=== PATIENT | male | born 1965 | race Caucasian/White ===

== ENCOUNTER 2017-02-10 11:08 | Emergency (ER) | payer OTHER ==
[~2017-02-10] VITALS: Ht 175.3 cm; Wt 77.1 kg
[~2017-02-10 11:08] MED LIST: KETOROLAC TROME10 MG PO; LEVAQUIN500 MG PO; NAPROXEN250 MG PO; ONDANSETRON ODT4 MG SL; OXYCODONE HCL5 MG PO; OXYCONTIN10 MG; PROMETHAZINE HC25 M1 PO; SOMA350 MG; XANAX0.25 MG
[2017-02-10] MEDS ORDERED: VITAMIN D1000 UNI1 PO (11:20)
[2017-02-10] MEDS ORDERED: LIPITOR40 MG PO (11:20)
== END 2017-02-10 12:25 | disposition home or self-care (01) ==
LOC: ED 11:08
DX: M54.5 Low back pain (principal); Z88.0 Allergy status to penicillin; Z88.5 Allergy status to narcotic agent; G47.00 Insomnia, unspecified; Z87.891 Personal history of nicotine dependence; Z90.49 Acquired absence of other specified parts of digestive tract; Z98.890 Other specified postprocedural states
CPT/HCPCS: 96372; 99282; J1885

== ENCOUNTER 2018-07-07 06:59 | Day surgery (SDC) | payer OTHER ==
[~2018-07-07] VITALS: Ht 175.3 cm; Wt 78.5 kg
[~2018-07-07 06:59] MED LIST changes: +ADVIL LIQUI-GE200 MG PO; +CRESTOR10 MG PO; +DICLOFENAC SODI75 MG PO; +LIPITOR40 MG PO; +RESTORIL30 MG PO; +VITAMIN D1000 UNI1 PO
--- NOTE | 2018-07-07 09:01 | NUR ---
07/07/18 0901 Radha Barakat 0855 PATIENT ARRIVES TO PACU AWAKE BUT DROWSY, DENIES PAIN, BUT DOES C/O "FEELING A LITTLE NAUSEA." RESP EVEN AND UNLABORED, NC OFF ON ARRIVAL TO PACU. ROOM AIR SATS >95%. DR TAY AWARE OF NAUSEA, NEW ORDERS WRITTEN.
--- NOTE | 2018-07-07 14:41 | NUR ---
PT ALERT, ORIENTED AND SUPPORTED BY HIS AFSANEH. PT REQUESTED PRAYER, AND ASKED IF I WOULD REMEMBER SURGERY HE IS SCHEDULED FOR NEXT WEEK. WILL FOLLOW NEEDED
--- NOTE | 2018-07-08 06:29 | OR ---
[facility] [address], [place] [address] Signed DATE OF OPERATION: 07/07/2018 SURGEON: Alexander Tay MD PREOPERATIVE DIAGNOSES: 1. Screening. 2. Pruritus ani. POSTOPERATIVE DIAGNOSIS: Mildly indurated prostate gland. PROCEDURE PERFORMED: Colonoscopy without biopsy. ESTIMATED BLOOD LOSS: None. 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 He is in need of a colonoscopy. He had a couple of colonoscopies in his 40s and they both came out fine. Currently, he has no lower GI complaints. There is no family history of colon cancer or polyps. However, he does describe some pruritus ani. He is actually a bit to treat that conservatively and we had gone over that in detail in the office along with our handout. I also gave him a handout on endoscopy and we have reviewed that in detail. He understands the nature of the test along with its risks including, but not limited to gas bloating, crampy abdominal pain, bleeding, perforation, requiring surgery, and missed diagnosis. He also understands the need for IV conscious sedation. 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 Consequently, Versed may not be sufficient, but we will not know until we try. He had expressed understanding and wished to proceed. PROCEDURE NOTE: Dewayne was taken into the endoscopy suite and placed in the left lateral decubitus position. He was given a total of 8 mg of Versed and 150 mcg of fentanyl to cover the case. He did wake up right as we finished the case and was talking to us in recovery room. He also received preoperative antibiotics because of his hip replacement. A digital rectal exam was performed and he does have a little bit of pale skin around the anus, but it is not bad, very small if any hemorrhoid tissue. The adult colonoscope was then introduced and advanced all the way around right up to the ileocecal valve. The only place we could not see was immediately behind the ileocecal valve. We gave some Electronically Signed By: ALEXANDER TAY MD 07/08/18 0629 PATIENT NAME: JAYNEDEWAYNE Gisel OPERATIVE REPORT DATE OF : 63 REPORT #: [id number] PHYSICIAN: ALEXANDER TAY MD PCP: KEATON FERRERA REPORT IS CONFIDENTIAL AND NOT TO BE RELEASED WITHOUT AUTHORIZATION [facility] [address], [place] [address] Signed additional sedation, abdominal compression, and so forth, and we just could not quite get around the edge of the ileocecal valve. Otherwise, his prep was quite good. The scope was then slowly withdrawn. He had no pathology throughout the entire colon or rectum. Upon retroflexion of scope, really very minimal in the way of internal hemorrhoid tissue. The gas was then suctioned out and the colonoscope removed. Dewayne tolerated the procedure quite well. RECOMMENDATIONS: I will see Dewayne back in my office in 10 years for a repeat colonoscopy. Alexander Tay MD ALB/MODL /[id number] cc: CARI [facility] Diogo Burrows PA Andrew L Bower, MD Copies: KEATON FERRERA ANDREW L MD ~ Electronically Signed By: ALEXANDER TAY MD 07/08/18 0629 PATIENT NAME: DEWAYNE GODOY OPERATIVE REPORT DATE OF : 63 REPORT #: [id number] PHYSICIAN: ALEXANDER TAY MD PCP: KEATON FERRERA REPORT IS CONFIDENTIAL AND NOT TO BE RELEASED WITHOUT AUTHORIZATION
== END 2018-07-07 09:30 | disposition home or self-care (01) ==
LOC: DS 06:59 → OPS 06:59 → DS 08:00 → OPS 08:15
PROVIDERS: Colon & Rectal Surgery
PROC: 0DJD8ZZ Inspection of Lower Intestinal Tract, Via Natural or Artificial Opening Endoscopic (ICD-10-PCS; principal; 2018-07-07 08:15)
DX: Z12.11 Encounter for screening for malignant neoplasm of colon (principal); N42.89 Other specified disorders of prostate; L29.0 Pruritus ani; E78.5 Hyperlipidemia, unspecified; G47.30 Sleep apnea, unspecified; Z88.0 Allergy status to penicillin; Z88.5 Allergy status to narcotic agent; Z88.1 Allergy status to other antibiotic agents; Z88.8 Allergy status to other drugs, medicaments and biological substances; Z79.899 Other long term (current) drug therapy
CPT/HCPCS: 99153; G0500; J0692; J2250; J2405; J3010; J7120

== ENCOUNTER 2020-05-17 05:50 | Day surgery (SDC) | payer OTHER ==
--- NOTE | 2020-05-15 14:34 | NUR ---
DOS:05/17/20 PATIENT HAS 5 STEPS INTO THE HOME HAS WALK IN SHOWER WITH SHOWER CHAIR HAS FWW WILL TAKE PATIENT TO APPOINTMENTS AND PHYSICAL THERAPY HAS HIGH TOLIET IN THE HOME
[~2020-05-17] VITALS: Ht 175.3 cm; Wt 72.3 kg
[~2020-05-17 05:50] MED LIST changes: +CRUTCH1 EACH; +IBU600 MG; +PROZAC10 MG PO; +QUALAQUIN324 MG PO; +TYLENOL325 M1 PO
[2020-05-17] MEDS ORDERED: ATIVAN1 MG PO (06:08)
--- NOTE | 2020-05-17 08:46 | NUR ---
OR STAFF GRACIOUSLY GAVE ME A MOMENT WITH PT. PT IS ALITTLE ANXIOUS, AFSANEH BY HIS SIDE. HAD PRAYER WITH PT. WILL FOLLOW NEEDED
--- NOTE | 2020-05-17 11:15 | NUR ---
1100: PT ARRIVES TO DS RM 6 FROM PACU DROWSY. PT EASILY AROUSES WITH VERBAL STIMULI, PT SPOUSE AT BEDSIDE ASSISTING. PT STATES PAIN 4/10 IN LEFT HIP AND TOLERABLE AT THIS TIME. CONT PULSE OX LEFT IN PLACE D\T REPORT OF DESATS. PT 96% ON RA. PT TOLERATES ICE CHIPS WITH NO PROBLEM. CALL LIGHT WITHIN REACH, LIGHTS DIMMED.
--- NOTE | 2020-05-17 11:57 | NUR ---
05/17/20 1157 Yasmeen Ma 7909 PT ARRIVED IN PACU AWAKE ON ROOM AIR. 1010 ANESTHESIA PLACED FEMORAL BLOCK WITH HELP FROM RN. 1016 PT C/O L HIP PAIN 7/10. DILAUDID 0.5MG GIVEN IVP.1017 TORADOL 30MG GIVEN IVP PER DR ORDERS. 1023 NO CHANGE IN PAIN LEVEL. DILAUDID 0.5MG GIVEN IVP. PT MOVING AROUND IN BED R/T HIP PAIN. 1033 C/O L HIP PAIN 710. FENTANYL 50MCGG GIVEN IVP. ENCOURAGED COUGH, DEEP BREATHING. 1040 PELVIS XRAY DONE. CRYO CUFF PLACED ON L HIP. 1045 PAIN DOWN TO 4/10. FENTANYL 50MCG GIVEN IVP. MOVING BILAT FEET. 1100 PAIN DOWN TO 3/10. TO DS. REPORT GIVEN TO RN. AT BEDSIDE.
--- NOTE | 2020-05-17 12:37 | NUR ---
[id number]: PHYSICAL THERAPY IN PT ROOM FOR EXERCISES. PT LEFT FEMORAL MUSCLE WEAK FROM BONNY NERVE BLOCK WHEN ASSISTED UP. PHYSICAL THERAPY STATES PT IS OKAY TO DO MODIFIED EXERCISES AND TAKES PT IN WC TO MED SURG FLOOR WITH SPOUSE. 1225: PT BACK FROM PHYSICAL THERAPY AND IN DS RM 6. PT TRANSFERS SELF WITH USE OF WALKER TO BED. PHYSICAL THERAPY STATES PT IS SAFE TO DC HOME WITH SPOUSE WHO IS A SMOKE ROOM OPERATOR. CRYO CUFF PLACED ON LEFT HIP, SCD'S IN PLACE AND PUMPING. PT STATES PAIN HAS INCREASED AND RATES 6/10. PRN PAIN MEDICATION PROVIDED, SPOUSE AT BEDSIDE.
--- NOTE | 2020-05-17 13:10 | NUR ---
PT RESTING IN BED WITH SPOUSE AT BEDSIDE WATCHING TV. PT STATES PAIN IS SAME, 6/10 WHEN ASKED AFTER ORAL PAIN MEDICATION. PT STATES BUTTOCKS AND LEFT THIGH ARE NUMB AND CAN'T TELL IF HE HAS TO VOID. PT UP TO SIDE OF BED WITH RN ASSIST AND SPOUSE USING WALKER TRYING TO VOID IN URINAL. PT UNABLE TO VOID, BACK TO BED WITH SCD'S IN PLACE, CALL LIGHT WITHIN REACH.
--- NOTE | 2020-05-17 14:15 | NUR ---
PT BACK IN DS RM FROM PACU. PT STILL LOOPY FROM MEDS. SAID HE HAS NO PAIN. PT RAMBLED ABOUT HIS MOTHER. AFSANEH AT BS. GAVE BLESSING AND ENCOURAGEMENT. WILL FOLLOW NEEDED
--- NOTE | 2020-05-17 15:08 | NUR ---
[id number]: PT REQUESTS BENADRYL FOR ITCHINIG FROM PAIN MEDICATION. THIS RN CALLS DR. MAURICIO WHO GIVES A VERBAL ORDER FOR PO BENADRYL, THIS RN INPUTS INTO [email or web address] FOR PHARMACY TO VERIFY AND FILL. [id number]: PT BLADDER SCANNED OF APPROX 825 MLS. PT EDUCATED ABOUT URINARY RETENTION AND NEED FOR STRAIGHT CATHETER PER MD ORDERS. PT STATES HE DOES NOT WANT CATHETER AND WOULD LIKE TO TRY ONCE MORE TO VOID IN URINAL. THIS RN AND SPOUSE ASSIST PT TO SIDE OF BED WITH USE OF WALKER, PT UNABLE TO VOID ON OWN. PT REQUESTS SOMETHING FOR ANXIETY ABOUT CATHETER INSERTION. THIS RN PHONES DR. MAURICIO AND RECEIVES VERBAL ORDER FOR IV VERSED WHICH IS INPUT INTO [email or web address] BY THIS RN TO VERIFY AND FILL. [id number]: UROJET USED ON PT PRIOR TO CATHETER INSERTION. CATHETER STERILY PLACED AND BLADDER EMPTIED OF APPROX 830 MLS ORANGE/RED COLORED URINE. PT EDUCATED ABOUT NEW VOIDING TRIAL AND WATER REFILLED AT THIS TIME. SPOUSE IN PT ROOM AT BEDSIDE. 1500: MEÑO GARCIA IN TO SEE PT ABOUT LEFT FEMORAL MUSCLE WEAKNESS. WILL CONTINUE TO MONITOR PT URINARY STATUS.
--- NOTE | 2020-05-17 17:13 | NUR ---
[id number]: PT STANDS AT SIDE OF BED WITH RN AND SPOUSE ASSIST WITH USE OF WALKER TRYING TO VOID IN URINAL. PT ABLE TO VOID APPROX 100 MLS ORANGE COLORED URINE. LEFT FEMORAL MUSCLE REMAINS WEAK WHEN STANDING. PT BACK TO BED WITH SPOUSE AT BEDSIDE. 1620: DR. MAURICIO NOTIFIED OF PT STATUS AND GIVES VERBAL ORDER TO DC PT HOME. PT SPOUSE PROVIDED URINAL AND CHUX PER REQUEST. PT SPOUSE ASSISTS PT DRESSED. DC INSTRUCTIONS PRESENTED TO PT AND SPOUSE. DR. MAURICIO WILL SEND ORDER FOR FLOMAX FOR PT TO CERAMICS MACHINE OPERATOR TOMORROW. 1655: PT DC VIA WC TO SPOUSE WAITING AT FRONT ENTRANCE OF HOSPITAL TO HOME.
--- NOTE | 2020-05-19 07:04 | OR ---
[facility] [address], [place] [address] Signed DATE OF OPERATION: 05/17/2020 SURGEON: Basim Dia MD PREOPERATIVE DIAGNOSIS: Avascular necrosis, left hip. POSTOPERATIVE DIAGNOSIS: Avascular necrosis, left hip. PROCEDURE PERFORMED: Left total hip replacement with Abdi. FOOT TENDER: Iris Torres PA-C. Iris was present and critical for all portions of procedure. ANESTHESIA: Spinal. BLOOD LOSS: 150 mL. IMPLANTS: Catalino Accolade II size 4 stem, 52 cup and a +0 head. BRIEF HISTORY: Yohan is a 54-year-old gentleman with bilateral avascular necrosis, who had undergone successful right total hip and wished to proceed with a left. Risks and benefits of operative treatment were discussed with him. He elected to proceed. DESCRIPTION OF PROCEDURE: Once consent was obtained, he was taken to the operating room. After adequate anesthesia, he was placed on the bone foam anterior hip positioner. All downside pressure points well padded. Both lower extremities were prepped and draped in a standard sterile fashion. The prep was taken up above the iliac crest. The left hip and iliac crest were draped out as was the right iliac crest for placement of the computer array. Once this was accomplished, the ASIS on the right side was palpated three fingerbreadths below the we placed three Schanz pins for the computer ray. This was done percutaneously. Attention was then turned to the left side. A Electronically Signed By: BASIM DIA MD 05/19/20 0704 PATIENT NAME: YOHAN GODOY OPERATIVE REPORT DATE OF : 63 REPORT #: [id number] PHYSICIAN: BASIM DIA MD PCP: GABY CURRIE REPORT IS CONFIDENTIAL AND NOT TO BE RELEASED WITHOUT AUTHORIZATION [facility] [address], [place] [address] Signed standard anterior lateral approach through Busch Lu interval was taken through the skin and subcutaneous tissue. The fascia was divided longitudinally just anterior to the gluteus medius and finger dissection was taken between the gluteus medius and tensor fascia hugo. All bleeders were cauterized as we encountered them. We were then able to get over to the femoral neck, put retractors around the femoral neck inferiorly and superiorly. We then elevated the rectus off the anterior capsule and the anterior acetabulum and placed retractors. The capsulotomy was then performed and it was found to be quite thickened, probably about 5-[address] through. The periacetabular soft tissue was removed. We then released the inferior capsule along the femur down to the lesser trochanter such they could be palpated. We then made our femoral neck cut one fingerbreadth above the lesser trochanter to the saddle area. Another neck cut was made about a cm proximal to this and the ring was removed. The femoral head was then removed. Periacetabular soft tissue and the pulvinar was then taken out. Prior to doing this, we did register leg with the computer. We then took fine anatomical points of the acetabulum and registered with the computer. The acetabulum was then reamed up to the 52 and the cup was impacted in 40 degrees of abduction and 20 degrees of anteversion. The cup was quite tight and was felt to be stable. The liner was then impacted in position. Attention was turned to the proximal femur. Release was performed off the superior and lateral capsule. The femur had good access. Care was taken to protect the gluteus medius throughout this as well as the greater trochanter. The proximal femur was opened using the cookie cutter followed by the curetting laterally. The rat-tail rasp was then used to find the canal. We then sequentially broached up to a zero. I did take zero to start due to the hardness of his bone. We were able to broach up to 4 which was found to be quite well fitting. We did bring the C-arm in and checked the position and size of the stem and it was found to be adequate. We then dislocated the hip, which was found to be within 3 mm of the opposite side per our plan. We then removed the trials, placed the final stem and impacted until it was well-seated. The posterior head was impacted and the hip was reduced and again found to be within our plan. The wound was copiously irrigated with antibiotic solution throughout. Periarticular soft tissues were injected with 100 mL ropivacaine Toradol mixture. On-Q pain pump was placed percutaneously into the intracapsular area of the hip and the fascia was closed using #1 Stratafix, 2-0 Stratafix, for the subcutaneous tissue and 3-0 Monocryl for the skin. Steri-Strips were applied. The wound was dressed with an Acticoat 7 dressing. He was taken to the recovery room in satisfactory condition. All sponge, needle, and instrument counts were correct. Basim Dia MD Electronically Signed By: BASIM DIA MD 05/19/20 0704 PATIENT NAME: YOHAN GODOY OPERATIVE REPORT DATE OF : 63 REPORT #: [id number] PHYSICIAN: BASIM DIA MD PCP: GABY CURRIE REPORT IS CONFIDENTIAL AND NOT TO BE RELEASED WITHOUT AUTHORIZATION [address] [place] [address] Signed /TERRENCE /[id number] Copies: ~ Electronically Signed By: BASIM DIA MD 05/19/20 0704 PATIENT NAME: YOHAN GODOY OPERATIVE REPORT DATE OF : 63 REPORT #: [id number] PHYSICIAN: BASIM DIA MD PCP: GABY CURRIE REPORT IS CONFIDENTIAL AND NOT TO BE RELEASED WITHOUT AUTHORIZATION
== END 2020-05-17 16:55 | disposition home or self-care (01) ==
LOC: DS 05:50
PROVIDERS: ATTEND Specialist
PROC: 8E0YXBZ Computer Assisted Procedure of Lower Extremity (ICD-10-PCS; 2020-05-17)
PROC: 0SRB0JA Replacement of Left Hip Joint with Synthetic Substitute, Uncemented, Open Approach (ICD-10-PCS; principal; 2020-05-17 06:45)
DX: M87.052 Idiopathic aseptic necrosis of left femur (principal); G89.18 Other acute postprocedural pain; E78.5 Hyperlipidemia, unspecified; G25.81 Restless legs syndrome; F41.9 Anxiety disorder, unspecified; Z79.1 Long term (current) use of non-steroidal anti-inflammatories (NSAID); Z88.1 Allergy status to other antibiotic agents; Z88.0 Allergy status to penicillin; Z88.8 Allergy status to other drugs, medicaments and biological substances; Z87.891 Personal history of nicotine dependence; Z96.641 Presence of right artificial hip joint
CPT/HCPCS: 01214; 64447; 72170; 76942; 97162; 97530; C1713; C1776; J0690; J1100; J1170; J1885; J2001; J2250; J2405; J2704; J2795; J3010; J7121

== ENCOUNTER 2020-11-17 05:40 | Day surgery (SDC) | payer OTHER ==
[~2020-11-17] VITALS: Ht 175.3 cm; Wt 72.8 kg
[~2020-11-17 05:40] MED LIST changes: +ATIVAN1 MG PO; +BUPRENORPHINE1 EAC1 TD
[2020-11-17] MEDS ORDERED: DICLOFENAC SODI75 MG PO (08:52)
[2020-11-17] MEDS ORDERED: HYDROCODON-ACE1 EA11 PO (08:52)
--- NOTE | 2020-11-17 08:52 | NUR ---
11/17/20 0852 Adam,Tessa 0903 PT ARRIVED TO PACU ON 6L VIA MASK, ORAL AIRWAY IN PLACE. VSS. RESP EVEN AND UNLABORED. PT NONAROUSABLE TO PAINFUL STIMULI.
[2020-11-17] MEDS ORDERED: SENNA LAX8.6 MG PO (08:53)
[2020-11-17] MEDS ORDERED: GABAPENTIN300 MG PO (08:53)
--- NOTE | 2020-11-17 09:40 | NUR ---
0930: PT RETURNS TO UNIT VIA STRETCHER. AWAKE AND ORIENTED ON ARRIVAL. VSS, RESP EVEN AND UNLABORED. DENIES PAIN AND NAUSEA. ICE WATER AND APPLE SAUCE PROVIDED REQUESTED. DRESSING C/D/I WITH SLING IN PLACE. POC DISCUSSED AND PT AGREEABLE. ATTENTIVE AT THE BEDSIDE. NO NEEDS VOICED, CALL LIGHT WITHIN REACH
--- NOTE | 2020-11-17 10:38 | NUR ---
1015: PT AWAKE AND ALERT WATCHING TV IN BED. UP TO BR WITH STANDBY ASSIST FROM . DENIES DIZZINESS AND SOB, STEADY GAIT. SUCCESSFUL POSTOP VOID, 100ML. DRESSES SELF INDEPENDENTLY FOR D/C. VSS, RESP EVEN AND UNLABORED. DENIES PAIN AND NAUSEA AT THIS TIME. SL D/C'D WITH CATH TIP INTACT AND PRESSURE APPLIED TO SITE, WNL. 1030: D/C INSTRUCTIONS PROVIDED AND DISCUSSED ORDERED. PT VOICES UNDERSTANDING AND DENIES QUESTIONS AND CONCERNS AT THIS TIME. WHEELED OFF OF UNIT IN WC. TRANSFERS INTO VEHICLE INDEPENDENTLY. NO PHYSICAL S/S OF DISTRESS AT THIS TIME
--- NOTE | 2020-11-20 07:09 | OR ---
[facility] [address] [place], [place] [address] Signed DATE OF OPERATION: 11/17/2020 SURGEON: Basim Dia MD PREOPERATIVE DIAGNOSIS: Dupuytren's disease, recurrent right hand. POSTOPERATIVE DIAGNOSIS: Dupuytren's disease, recurrent right hand. PROCEDURE PERFORMED: Partial fasciectomy, right hand middle, ring and small digits. RIM FIRE CHARGER OPERATOR: None. ANESTHESIA: General with block. TOURNIQUET TIME: 65 minutes. BRIEF HISTORY: Yohan is a 55-year-old gentleman who has Dupuytren's in his right hand. He had partial fasciectomy prior with mild recurrence of the disease and quite a bit of pain along the small finger, which was the most contracted at about 10-15 degrees. Risks and benefits of operative treatment including, but not limited to bleeding, infection, injury to nerves and vessels, and nonhealing were discussed with him and he elected to proceed. DESCRIPTION OF PROCEDURE: Once consent was obtained, he was taken to the operating room. After adequate anesthesia, he was placed on operating table, all downside pressure points were well padded. A well-padded proximal arm tourniquet was placed. The arm was prepped and draped in a standard sterile fashion. The arm was exsanguinated using an Esmarch bandage. Tourniquet inflated to 200 mmHg. A transverse incision was made in the distal palmar crease and carefully carried through the skin. Skin flaps were then developed along the cords proximally first and then distally with care taken to not puncture a bone hole through the skin. The dissection was carried out using sharp knife and allowed visualization of the cords which were three separate masses along those digits. Careful dissection was taken proximally and the individual cords were Electronically Signed By: BASIM DIA MD 11/20/20 0709 PATIENT NAME: YHOAN GODOY OPERATIVE REPORT DATE OF : 63 REPORT #: [id number] PHYSICIAN: BASIM DIA MD PCP: GABY CURRIE REPORT IS CONFIDENTIAL AND NOT TO BE RELEASED WITHOUT AUTHORIZATION [facility] [address] [place], [place] [address] Signed dissected free from the underlying tendon sheath. There was minimal neurovascular bundle involvement in the ring and middle fingers. The neurovascular bundle between the ring and small finger was extensively involved in the disease and under loupe magnification, it was carefully dissected free from the overlying Dupuytren's cords. This was carried proximally to the proximal extent of the cord. This was then folded back and carefully dissected distally. Again, under loupe magnification, care was taken to carefully separate the neurovascular bundle from the overlying disease tissue. All three cords were then dissected distally. Both the ring and middle cords were self-terminated at about the MP joint. The small finger cord did go a little bit further distally. It was again dissected free of the surrounding soft tissue and was released. The cords were then removed from the wound. Careful palpation was undertaken and several small nodules were removed. Once again, the neurovascular bundles were visualized and found to be intact. We then released the tourniquet and let the arm set for 10 minutes. There was minor bleeding, but no pulsatile bleeding. All five fingers were well perfused with nice pink capillary refill. We then reapplied the tourniquet, irrigated the wound copiously with normal saline and closed the wound with a running 3-0 Monocryl suture in a horizontal mattress fashion. Once this was accomplished, the wound was then dressed with Adaptic and a bulky Lu hand dressing with the fingers in extension. This was covered with plaster again with three lesser digits in extension. The patient was then awakened, taken to the recovery room in satisfactory condition. All sponge, needle, and instrument counts were correct. Basim Dia MD BA/MODL /[id number] Copies: ~ Electronically Signed By: BASIM DIA MD 11/20/20 0709 PATIENT NAME: YOHAN GODOY OPERATIVE REPORT DATE OF : 63 REPORT #: [id number] PHYSICIAN: BASIM DIA MD PCP: GABY CURRIE REPORT IS CONFIDENTIAL AND NOT TO BE RELEASED WITHOUT AUTHORIZATION
== END 2020-11-17 10:30 | disposition home or self-care (01) ==
LOC: DS 05:40
PROVIDERS: ATTEND Specialist
PROC: 0LN70ZZ Release Right Hand Tendon, Open Approach (ICD-10-PCS; 2020-11-17)
PROC: 0LN70ZZ Release Right Hand Tendon, Open Approach (ICD-10-PCS; 2020-11-17)
PROC: 0LN70ZZ Release Right Hand Tendon, Open Approach (ICD-10-PCS; 2020-11-17)
PROC: 0JNJ0ZZ Release Right Hand Subcutaneous Tissue and Fascia, Open Approach (ICD-10-PCS; principal; 2020-11-17 07:00)
DX: M72.0 Palmar fascial fibromatosis [Dupuytren] (principal); G89.18 Other acute postprocedural pain; I10 Essential (primary) hypertension; Z88.6 Allergy status to analgesic agent; Z88.1 Allergy status to other antibiotic agents; Z88.5 Allergy status to narcotic agent; Z88.0 Allergy status to penicillin
CPT/HCPCS: 01830; 64417; 76942; J0690; J1100; J1885; J2001; J2250; J2405; J2704; J2795; J7121

== ENCOUNTER 2021-10-18 07:17 | Emergency (ER) | payer OTHER ==
[~2021-10-18] VITALS: Ht 175.3 cm; Wt 74.8 kg
[~2021-10-18 07:17] MED LIST changes: +GABAPENTIN300 MG PO; +HYDROCODON-ACE1 EA11 PO; +SENNA LAX8.6 MG PO
--- OUTSIDE RECORDS SUMMARY | 2021-10-18 07:20 | XMS ---
PreManage Notification: DEWAYNE GODOY Security Rental Car Porter Events No recent Security Events currently on file [facility] There are no care providers on record at this time. Sheila has no Care Guidelines for this patient. [place] VISIT COUNT (12 MO.) 1 SANTOSH Nguyen TOTAL 1 NOTE: Visits indicate total known visits. ED/C VISIT TRACKING (12 MO.) 10/18/2021 07:19 SANTOSH Lyn [place] TYPE: Emergency COMPLAINT: - FLU SYMPTOMS INPATIENT VISIT TRACKING (12 MO.) No inpatient visits to display in this time frame [email or web address]
== END 2021-10-18 09:02 | disposition home or self-care (01) ==
LOC: ED 07:17
DX: U07.1 COVID-19 (principal); G47.00 Insomnia, unspecified; Z88.0 Allergy status to penicillin; Z88.1 Allergy status to other antibiotic agents; Z88.5 Allergy status to narcotic agent; Z79.899 Other long term (current) drug therapy
CPT/HCPCS: 99283

== ENCOUNTER 2021-11-25 13:18 | Emergency (ER) | payer OTHER ==
[~2021-11-25] VITALS: Ht 175.3 cm; Wt 74.8 kg
--- OUTSIDE RECORDS SUMMARY | 2021-11-25 13:20 | XMS ---
PreManage Notification: DEWAYNE GODOY Security Drywall Taper Events No recent Security Events currently on file [facility] There are no care providers on record at this time. Sheila has no Care Guidelines for this patient. [place] VISIT COUNT (12 MO.) 2 SANTOSH Nguyen TOTAL 2 NOTE: Visits indicate total known visits. ED/UCC VISIT TRACKING (12 MO.) 11/25/2021 13:18 SANTOSH Lyn [place] TYPE: Emergency COMPLAINT: - FINGER LAC 10/18/2021 07:19 SANTOSH Lyn [place] TYPE: Emergency COMPLAINT: - FLU SYMPTOMS DIAGNOSES: - COVID-19 - Other dedicated intermodal truck driver (current) drug therapy - Allergy status to narcotic agent - Fever, unspecified - Allergy status to other antibiotic agents - Insomnia, unspecified - Allergy status to penicillin INPATIENT VISIT TRACKING (12 MO.) No inpatient visits to display in this time frame [email or web address]
[2021-11-25] MEDS ORDERED: CARISOPRODOL350 MG PO (13:33)
== END 2021-11-25 14:17 | disposition home or self-care (01) ==
LOC: ED 13:18
DX: S61.211A Laceration without foreign body of left index finger without damage to nail, initial encounter (principal); W45.8XXA Other foreign body or object entering through skin, initial encounter; Z88.0 Allergy status to penicillin; Z88.5 Allergy status to narcotic agent; Z88.8 Allergy status to other drugs, medicaments and biological substances; Z79.899 Other long term (current) drug therapy
CPT/HCPCS: 12001; 99282-25; J1885

== ENCOUNTER 2023-05-10 14:54 | Emergency (ER) | payer OTHER ==
[~2023-05-10] VITALS: Ht 175.3 cm; Wt 77.0 kg
[~2023-05-10 14:54] MED LIST changes: +CARISOPRODOL350 MG PO; +DILAUDID2 MG PO; +PEPCID20 MG PO; +TEMAZEPAM7.5 MG PO
--- OUTSIDE RECORDS SUMMARY | 2023-05-10 14:56 | XMS ---
PreManage Notification: DEWAYNE GODOY Security Ammonia Operator Events No recent Security Events currently on file CRITERIA MET - [facility] - 2 Visits in 30 Days CARE PROVIDERS [facility]: [place] Current PHONE: [phone] Sheila has no Care Guidelines for this patient. EGabriela VISIT COUNT (12 MO.) [address] [place] [address] TOTAL 3 NOTE: Visits indicate total known visits. ED/UCC VISIT TRACKING (12 MO.) 05/10/2023 14:55 SANTOSH Lyn [place] TYPE: Emergency COMPLAINT: - CHEST PAIN 05/06/2023 13:36 SANTOSH Lyn [place] TYPE: Emergency COMPLAINT: - POST SURGERY POSS DVT DIAGNOSES: - Allergy status to narcotic agent - Allergy status to other antibiotic agents - Allergy status to other drugs, medicaments and biological substances - Allergy status to penicillin - Cramp and spasm - Other buttermilk drier operator (current) drug therapy 09/15/2022 10:44 SANTOSH Lyn [place] TYPE: Emergency COMPLAINT: - SHORTNESS OF BREATH DIAGNOSES: - Allergy status to narcotic agent - Allergy status to other antibiotic agents - Allergy status to penicillin - Bronchitis, not specified as acute or chronic - COVID-19 - Other residential (current) drug therapy - Shortness of breath INPATIENT VISIT TRACKING (12 MO.) No inpatient visits to display in this time frame [email or web address]
[2023-05-10 15:18] LABS: BASOPHILS 0.7 % (0-2); EOSINOPHILS 1.4 % (0-6); HEMATOCRIT 38.8 % (35.0-50.0); HEMOGLOBIN 13.1 g/dL (12.0-18.0); MCH 29.8 (27-36); MCHC 33.7 g/dl (30-36); MCV 88.4 fl (81-99); MONOCYTES 8.5 % (0-12); NEUTROPHILS 64.4 % (39-80); PLATELET COUNT 259 K/uL (140-440); RBC 4.39 M/ul (4.3-5.7); RDW 13.4 (10.5-15.0)
[2023-05-10] MEDS ORDERED: HYDROmorphone HCL 1 MG/ML SYR IV ONE ×2 (15:30→16:30)
[2023-05-10 15:34] LABS: ALBUMIN 4.1 g/dL (3.4-5.0); ALBUMIN/GLOBULIN RATIO 1.21 (1.1-2.4); ANION GAP 11.2 (7-21); BILIRUBIN, TOTAL 0.2 ng/dL (0.2-1.0); BUN/CREATININE RATIO 11.11 (6.0-28.6); CALCIUM 9.8 mg/dL (8.5-10.1); CREATININE, SERUM 1.44 mg/dL (0.70-1.30); MAGNESIUM 2.1 mg/dL (1.8-2.4); POTASSIUM 4.2 mmol/L (3.5-5.1); PROTEIN, TOTAL 7.5 g/dL (6.4-8.2)
[2023-05-10] MEDS ORDERED: ROSUVASTATIN CA40 MG PO (17:11)
[2023-05-10 19:02] VITALS: BP 154/104
--- NOTE | 2023-05-11 16:57 | EKG ---
[facility] [address] [facility] [place], [place] [address] Signed Normal sinus rhythm with sinus arrhythmia Normal ECG No previous ECGs available Confirmed by JUNIE BYRD MD ([id number]) on 05/11/2023 4:57:47 PM Electronically Signed By: JUNIE BYRD 05/11/23 1657 PATIENT NAME: DEWAYNE GODOY Gisel Electrocardiogram DATE OF : 63 PHYSICIAN: JUNIE BYRD REPORT #: [id number] REPORT IS CONFIDENTIAL AND NOT TO BE RELEASED WITHOUT AUTHORIZATION
== END 2023-05-10 19:07 | disposition home or self-care (01) ==
LOC: ED 14:54
PROVIDERS: Emergency Medicine
DX: R07.89 Other chest pain (principal); R79.1 Abnormal coagulation profile; F41.9 Anxiety disorder, unspecified; G47.00 Insomnia, unspecified; Z98.1 Arthrodesis status; Z79.899 Other long term (current) drug therapy; Z88.0 Allergy status to penicillin; Z88.1 Allergy status to other antibiotic agents; Z88.8 Allergy status to other drugs, medicaments and biological substances; Z88.5 Allergy status to narcotic agent
CPT/HCPCS: 36415; 71045; 71260; 80053; 83735; 84484; 85025; 85379; 93005; 93010; 96376; 99285-25; J1170; Q9967

== ENCOUNTER 2024-03-11 13:12 | Emergency (ER) | payer OTHER ==
[~2024-03-11] VITALS: Ht 175.3 cm; Wt 75.0 kg
[~2024-03-11 13:12] MED LIST changes: +ROSUVASTATIN CA40 MG PO
[2024-03-11] MEDS ORDERED: BELBUCA150 MCG BUCCAL (13:26)
[2024-03-11] MEDS ORDERED: LYRICA100 MG PO (13:26)
[2024-03-11 14:41] VITALS: BP 148/75
== END 2024-03-11 14:43 | disposition home or self-care (01) ==
LOC: ED 13:12
DX: M79.604 Pain in right leg (principal); Z88.0 Allergy status to penicillin; Z88.1 Allergy status to other antibiotic agents; Z88.5 Allergy status to narcotic agent; Z88.8 Allergy status to other drugs, medicaments and biological substances; Z79.899 Other long term (current) drug therapy
CPT/HCPCS: 93971; 99283-25